=== PATIENT | female | born 1990 | race Caucasian/White ===

== ENCOUNTER 2017-02-19 15:09 | Emergency (ER) | payer OTHER ==
[2017-02-19 15:14] VITALS: BP 146/87
[2017-02-19 16:25] LABS: BILIRUBIN,URINE NEGATIVE (NEGATIVE)
--- NOTE | 2017-02-19 16:29 | ED Physician Documentation ---
History of Present Illness - Stated complaint Stated Complaint: LIGHT HEADED - Chief complaint Chief Complaint: Neuro - History obtained from History obtained from: Patient - History of Present Illness Timing: Yesterday - Additonal information Additional information: light headed since yesterday. She has had this similar feeling after taking her buspar that lasts about 1/2 hour. This lasted much longer yesterday and thought she was dehydrated and drank some extra water. Yesterday was one of the first hot days we have had this summer. Today she continues to have light headedness but she has not had spots before her eyes. She has not had vomiting or diarrhea or syncope. She has not changed medications or had any infection. She denies cough or congestion. Review of Systems Constitutional: reports: Fatigue. denies: Fever, Chills Eyes: denies: Decreased vision Ears: denies: Ear pain Nose: denies: Rhinorrhea / runny nose, Congestion Throat: reports: Other (The patient reports a 2 month history of a pain over the left jaw area that is brief and intense. She has had her wisdom teeth out and she has had a dental exam and this apparently shows this is not the problem. ). denies: Sore throat Cardiac: denies: Chest pain / pressure, Palpitations Respiratory: reports: Dyspnea. denies: Cough GI: denies: Abdominal Pain, Nausea, Vomiting, Constipation, Diarrhea : denies: Dysuria, Frequency Skin: denies: Rash Musculoskeletal: denies: Neck pain, Back pain, Extremity pain Neurologic: reports: Headache. denies: Generalized weakness, Focal weakness, Head injury, LOC PD PAST MEDICAL HISTORY - Past Medical History Past Medical History: Yes Psych: Anxiety Other Past Medical History: allergies - Past Surgical History Past Surgical History: Yes - Present Medications Home Medications: Ambulatory Orders Medication Instructions Recorded Confirmed Fexofenadine HCl [Salma Allergy] 180 mg DAILY 02/19/17 02/19/17 Montelukast [Singulair] 10 mg QPM 02/19/17 02/19/17 busPIRone [Buspar] 10 mg BID 02/19/17 02/19/17 - Allergies Allergies/Adverse Reactions: Allergies Allergy/AdvReac Type Severity Reaction Status Date / Time clindamycin Allergy Hives Verified 02/19/17 15:15 Penicillins Allergy Unknown Verified 10/16/14 17:04 tramadol Allergy Hives Verified 02/19/17 15:15 - Social History Does the pt smoke?: No Smoking Status: Never smoker Does the pt drink ETOH?: No Does the pt have substance abuse?: No PD ED PE NORMAL - Vitals Vital signs reviewed: Yes (tachy to 100 and hypertensive) - General General: Alert and oriented X 3, No acute distress, Well developed/nourished - HEENT HEENT: Atraumatic, PERRL, EOMI, Ears normal, Pharynx benign, Dentition benign, Other (dry mucous membranes ) - Neck Neck: Supple, no meningeal sign, No bony TTP, No adenopathy - Cardiac Cardiac: RRR, No murmur - Respiratory Respiratory: No respiratory distress, Clear bilaterally - Abdomen Abdomen: Soft, Non tender - Back Back: No CVA TTP, No spinal TTP - Derm Derm: Normal color, Warm and dry, No rash - Extremities Extremities: No deformity, No edema - Neuro Neuro: Alert and oriented X 3, marketing sales consultant 2-12 intact, No motor deficit, No sensory deficit, Normal speech - Psych Psych: Normal mood, Normal affect Results - Vitals Vitals: Vital Signs - 24 hr 02/19/17 15:12 Temperature 36.7 C Heart Rate 101 H Respiratory 18 Rate Blood Pressure 146/87 H O2 Saturation 97 Oxygen O2 Source Room air - Labs Labs: Laboratory Tests 02/19/17 16:15 Urine Color YELLOW Urine Clarity CLEAR Urine pH 6.0 Ur Specific [place] 1.020 Urine Protein NEGATIVE Urine Glucose (UA) NEGATIVE Urine Ketones NEGATIVE Urine Occult Blood SMALL H Urine Nitrite NEGATIVE Urine Bilirubin NEGATIVE Urine Urobilinogen 0.2 (NORMAL) Ur Leukocyte Esterase NEGATIVE Urine RBC 0-5 Urine WBC 0-3 Ur Squamous Epith Cells FEW Squamous Urine Bacteria None Seen Ur Microscopic Review INDICATED Urine Culture Comments NOT INDICATED Urine HCG, Qual NEGATIVE Procedures - IVC sono (time) 1610 Bedside IVC sono: IVC measures (cm) (0.84), IVC collapsed c insp (cm) (complete) , Dehydration PD MEDICAL DECISION MAKING - ED course Complexity details: reviewed old records, reviewed results, re-evaluated patient , considered differential, d/w patient ED course: 26 y/o female with light headedness is dehydrated on interrogation of the IVC and she is able to hydrate orally and does not feel IV is needed. We are checking her urine and providing oral hydration. Departure - Departure Disposition: 01 Home, Self Care Clinical Impression: Dehydration Instructions: ED Dehydration Follow-Up: Carolyn Caal MD [Primary Care Provider] -
[2017-02-19 16:35] LABS: HCG UR QUAL NEGATIVE; UA w/ MICROSCOPIC CHARGE YES
[2017-02-19 16:44] LABS: UR CULTURE IF IND NOT INDICATED; WBC,URINE 0-3 /HPF (0-5)
== END 2017-02-19 16:58 | disposition home or self-care (01) ==
LOC: ED 15:09
DX: E86.0 Dehydration (principal); R42 Dizziness and giddiness
CPT/HCPCS: 81001; 81003; 81025; 87086; 99283; 99284

== ENCOUNTER 2017-12-28 04:20 | Outpatient (CLI) | payer OTHER | END 2017-12-28 04:21 | disposition critical access hospital (66) | LOC: EMS 04:20 | PROVIDERS: ATTEND Surgery | DX: R07.9 Chest pain, unspecified (principal) | CPT/HCPCS: A0425; A0429 ==

== ENCOUNTER 2017-12-28 04:42 | Emergency (ER) | payer OTHER ==
--- NOTE | 2017-12-28 04:50 | ED Physician Documentation ---
PD HPI CHEST PAIN - Stated complaint Stated Complaint: CHEST PAIN - Chief complaint Chief Complaint: Cardiac - History obtained from History obtained from: Patient - History of Present Illness Timing - onset: Enter time (11:00), Today Timing - onset during: Rest Timing - duration: Hours Timing - details: Gradual onset, Still present Quality: Pressure, Pain Location: Other (band-like distribution) Improved by: Nothing Worsened by: Inspiration Associated symptoms: No: Shortness of air, Diaphoresis, Nausea, Vomiting, Feeling faint / dizzy, General Weakness, Palpitations, Cough Similar symptoms before: Has not had sx before Recently seen: Not recently seen Review of Systems Constitutional: reports: Reviewed and negative Cardiac: reports: Chest pain / pressure. denies: Palpitations, Pedal edema, Calf pain Respiratory: reports: Reviewed and negative GI: reports: Reviewed and negative Musculoskeletal: denies: Extremity swelling PD PAST MEDICAL HISTORY - Past Medical History Past Medical History: Yes Psych: Anxiety - Past Surgical History Past Surgical History: Yes - Present Medications Home Medications: Ambulatory Orders Medication Instructions Recorded Confirmed Fexofenadine HCl [Salma Allergy] 180 mg DAILY 02/19/17 02/19/17 Montelukast [Singulair] 10 mg QPM 02/19/17 02/19/17 busPIRone [Buspar] 10 mg BID 02/19/17 02/19/17 - Allergies Allergies/Adverse Reactions: Allergies Allergy/AdvReac Type Severity Reaction Status Date / Time clindamycin Allergy Hives Verified 12/28/17 04:49 Penicillins Allergy Unknown Verified 12/28/17 04:49 tramadol Allergy Hives Verified 12/28/17 04:49 - Social History Does the pt smoke?: No Smoking Status: Never smoker Does the pt drink ETOH?: No Does the pt have substance abuse?: No PD ED PE NORMAL - Vitals Vital signs reviewed: Yes - General General: Alert and oriented X 3, No acute distress, Well developed/nourished - Cardiac Cardiac: RRR, No murmur - Respiratory Respiratory: No respiratory distress, Clear bilaterally - Abdomen Abdomen: Soft, Non tender - Derm Derm: Normal color, Warm and dry - Extremities Extremities: No edema Results - Vitals Vitals: Oxygen O2 Source Room air - EKG (time done) No standard instances Rate: Rate (enter#) (97) Rhythm: NSR [place]: Normal Intervals: Normal [place] QRS: Normal Ischemia: Normal ST segments - Labs Labs: Laboratory Tests 12/28/17 12/28/17 12/28/17 05:28 05:28 05:28 WBC 9.3 RBC 4.82 Hgb 12.6 Hct 39.0 MCV 80.9 L MCH 26.2 L MCHC 32.4 RDW 13.9 Plt Count 299 MPV 7.2 L Neut # 6.0 Lymph # 2.4 [place] # 0.6 Eos # 0.3 Baso # 0.0 Absolute Nucleated RBC 0.00 Nucleated RBC % 0.0 D-Dimer 285.5 H Sodium 135 Potassium 3.5 Chloride 103 Carbon Dioxide 22 Anion Gap 10.0 BUN 10 Creatinine 0.6 Estimated GFR (MDRD) 122 Glucose 95 Calcium 8.7 - Rads (name of study) chest xray Radiology: Prelim report reviewed, See rad report PD MEDICAL DECISION MAKING - ED course Complexity details: reviewed results, re-evaluated patient, considered differential, d/w patient Departure - Departure Disposition: 01 Home, Self Care Clinical Impression: Chest pain Qualifiers: Chest pain type: unspecified Qualified Code(s): R07.9 - Chest pain, unspecified Condition: Good Instructions: ED Chest Pain Atypical Unkn Cause Follow-Up: RAVINDER Pimentel [Provider Group] Discharge Date/Time: 12/28/17 06:40
[2017-12-28 05:33] LABS: BASOPHILS % (AUTO) 0.5 %; EOSINOPHILS # (AUTO) 0.3 10^3/uL (0.0-0.7); EOSINOPHILS % (AUTO) 3.1 %; HGB - HEMOGLOBIN 12.6 g/dL (12.0-16.0); LYMPHOCYTES # (AUTO) 2.4 10^3/uL (1.5-3.5); LYMPHOCYTES % (AUTO) 25.6 %; MEAN CORPUSCULAR HEMOGLOBIN 26.2 pg (27.0-31.0); MEAN CORPUSCULAR HGB CONC 32.4 g/dL (32.0-36.0); MEAN CORPUSCULAR VOLUME 80.9 fL (81.0-99.0); MEAN PLATELET VOLUME 7.2 fL (7.9-10.8); MONOCYTES # (AUTO) 0.6 10^3/uL (0.0-1.0); MONOCYTES % (AUTO) 6.9 %; NEUTROPHILS % (AUTO) 63.9 %; PLT - PLATELET COUNT 299 10^3/uL (130-450); RED BLOOD COUNT 4.82 10^6/uL (4.20-5.40); RED CELL DISTRIBUTION WIDTH 13.9 % (12.0-15.0); WHITE BLOOD COUNT 9.3 x10^3/uL (4.8-10.8)
[2017-12-28 05:39] LABS: CALCIUM 8.7 mg/dL (8.5-10.3); CREATININE 0.6 mg/dL (0.4-1.0)
[2017-12-28 06:03] VITALS: BP 120/89
--- NOTE | 2017-12-28 06:03 | XRAY Report ---
EXAM: CHEST RADIOGRAPHY EXAM DATE: 12/28/2017 05:38 AM. CLINICAL HISTORY: Chest pain. COMPARISON: None. TECHNIQUE: 2 views. FINDINGS: Lungs/Pleura: No focal opacities evident. No pleural effusion. No pneumothorax. Normal volumes. Mediastinum: Heart and mediastinal contours are unremarkable. Other: None. IMPRESSION: Normal 2-view chest radiography. [facility] Referring Provider Line: [phone] SITE ID: [id number]
== END 2017-12-28 06:40 | disposition home or self-care (01) ==
LOC: EDUNIT# → ED 04:42
DX: R07.9 Chest pain, unspecified (principal)
CPT/HCPCS: 36415; 71046; 80048; 85025; 85379; 93005; 99283; 99284

== ENCOUNTER 2018-03-17 03:11 | Emergency (ER) | payer OTHER ==
--- NOTE | 2018-03-17 04:12 | ED Physician Documentation ---
History of Present Illness - Stated complaint Stated Complaint: R/L SHOULDER PAIN/LIGHTHEADEDNESS - Chief complaint Chief Complaint: General - History obtained from History obtained from: Patient - History of Present Illness Timing: Today Pain level now: 5 Quality: stabbing Improved by: no ameliorating factors Worsened by: no exacerbating factors - Additonal information Additional information: c/o pain bilateral shoulders and between shoulder blades, stabbing pain without exacerbating or ameliorating factors. recently had antibiotics for UTI Review of Systems Constitutional: reports: Reviewed and negative Cardiac: reports: Reviewed and negative Respiratory: reports: Reviewed and negative GI: reports: Abdominal Pain, Nausea, Vomiting : denies: Dysuria, Frequency PD PAST MEDICAL HISTORY - Past Medical History Psych: Anxiety - Past Surgical History Past Surgical History: Yes - Present Medications Home Medications: Ambulatory Orders Medication Instructions Recorded Confirmed Fexofenadine HCl [Salma Allergy] 180 mg DAILY 02/19/17 02/19/17 Montelukast [Singulair] 10 mg QPM 02/19/17 02/19/17 busPIRone [Buspar] 10 mg BID 02/19/17 02/19/17 - Allergies Allergies/Adverse Reactions: Allergies Allergy/AdvReac Type Severity Reaction Status Date / Time clindamycin Allergy Hives Verified 03/17/18 03:20 Penicillins Allergy Unknown Verified 03/17/18 03:20 tramadol Allergy Hives Verified 03/17/18 03:20 - Social History Does the pt smoke?: No Smoking Status: Never smoker Does the pt drink ETOH?: No Does the pt have substance abuse?: No - Immunizations Immunizations are current?: Yes PD ED PE NORMAL - Vitals Vital signs reviewed: Yes - General General: Alert and oriented X 3, No acute distress, Well developed/nourished - HEENT HEENT: Moist mucous membranes - Cardiac Cardiac: RRR, No murmur - Respiratory Respiratory: No respiratory distress, Clear bilaterally - Abdomen Abdomen: Soft, Non distended, Other (moderate tenderness right abdomen, greatest in RLQ) - Back Back: No CVA TTP Results - Vitals Vitals: Oxygen O2 Source Room air - Labs Labs: Laboratory Tests 03/17/18 03/17/18 03/17/18 04:39 04:40 04:40 WBC 7.4 RBC 4.64 Hgb 12.8 Hct 38.2 MCV 82.3 MCH 27.6 MCHC 33.5 RDW 14.5 Plt Count 291 MPV 7.9 Neut # (Auto) 4.6 Lymph # (Auto) 1.8 [place] # (Auto) 0.6 Eos # (Auto) 0.2 Baso # (Auto) 0.2 H Absolute Nucleated RBC 0.01 Nucleated RBC % 0.1 Sodium 137 Potassium 3.7 Chloride 103 Carbon Dioxide 26 Anion Gap 8.0 BUN 8 Creatinine 0.7 Estimated GFR (MDRD) 101 Glucose 99 Calcium 9.2 Total Bilirubin 0.7 AST 19 ALT 14 Alkaline Phosphatase 70 Total Protein 7.8 Albumin 4.6 Globulin 3.2 Albumin/Globulin Ratio 1.4 Lipase 36 HCG, Quant Urine Color YELLOW Urine Clarity CLEAR Urine pH 7.0 Ur Specific [place] <=1.005 Urine Protein NEGATIVE Urine Glucose (UA) NEGATIVE Urine Ketones NEGATIVE Urine Occult Blood NEGATIVE Urine Nitrite NEGATIVE Urine Bilirubin NEGATIVE Urine Urobilinogen 0.2 (NORMAL) Ur Leukocyte Esterase NEGATIVE Ur Microscopic Review NOT INDICATED Urine Culture Comments NOT INDICATED 03/17/18 04:40 WBC RBC Hgb Hct MCV MCH MCHC RDW Plt Count MPV Neut # (Auto) Lymph # (Auto) [place] # (Auto) Eos # (Auto) Baso # (Auto) Absolute Nucleated RBC Nucleated RBC % Sodium Potassium Chloride Carbon Dioxide Anion Gap BUN Creatinine Estimated GFR (MDRD) Glucose Calcium Total Bilirubin AST ALT Alkaline Phosphatase Total Protein Albumin Globulin Albumin/Globulin Ratio Lipase HCG, Quant < 0.60 Urine Color Urine Clarity Urine pH Ur Specific [place] Urine Protein Urine Glucose (UA) Urine Ketones Urine Occult Blood Urine Nitrite Urine Bilirubin Urine Urobilinogen Ur Leukocyte Esterase Ur Microscopic Review Urine Culture Comments - Rads (name of study) CT A/P Radiology: Prelim report reviewed, See rad report PD MEDICAL DECISION MAKING - ED course Complexity details: reviewed results, re-evaluated patient, considered differential, d/w patient - Sepsis Event Vital Signs: Oxygen O2 Source Room air Departure - Departure Disposition: 01 Home, Self Care Clinical Impression: Abdominal pain, Back pain Condition: Good Instructions: ED Abdominal Pain Unkn Cause, ED Acute Pain [facility] Follow-Up: RAVINDER Pimentel [Provider Group] Discharge Date/Time: 03/17/18 06:44
[2018-03-17] MEDS ORDERED: ACETAMINOPHEN 1,000 MG/100 ML 100 ML IV STA (04:27)
[2018-03-17 04:55] LABS: BILIRUBIN,URINE NEGATIVE (NEGATIVE); GLUCOSE, URINE (UA) NEGATIVE (NEGATIVE); KETONES,URINE (UA) NEGATIVE (NEGATIVE); LEUKOCYTE ESTERASE, URINE NEGATIVE (NEGATIVE); NITRITE,URINE NEGATIVE (NEGATIVE); OCCULT BLOOD,URINE NEGATIVE (NEGATIVE); PROTEIN,URINE NEGATIVE (NEGATIVE); UROBILINOGEN,URINE 0.2 (NORMAL) E.U./dL (NORMAL)
[2018-03-17 04:56] LABS: BASOPHILS # (AUTO) 0.2 10^3/uL (0.0-0.1); BASOPHILS % (AUTO) 3.2 %; EOSINOPHILS # (AUTO) 0.2 10^3/uL (0.0-0.7); EOSINOPHILS % (AUTO) 2.8 %; HGB - HEMOGLOBIN 12.8 g/dL (12.0-16.0); LYMPHOCYTES # (AUTO) 1.8 10^3/uL (1.5-3.5); LYMPHOCYTES % (AUTO) 23.8 %; MEAN CORPUSCULAR HEMOGLOBIN 27.6 pg (27.0-31.0); MEAN CORPUSCULAR HGB CONC 33.5 g/dL (32.0-36.0); MEAN CORPUSCULAR VOLUME 82.3 fL (81.0-99.0); MEAN PLATELET VOLUME 7.9 fL (7.9-10.8); MONOCYTES # (AUTO) 0.6 10^3/uL (0.0-1.0); NEUTROPHILS # (AUTO) 4.6 10^3/uL (1.5-6.6); NEUTROPHILS % (AUTO) 62.2 %; PLT - PLATELET COUNT 291 10^3/uL (130-450); RED BLOOD COUNT 4.64 10^6/uL (4.20-5.40); RED CELL DISTRIBUTION WIDTH 14.5 % (12.0-15.0); WHITE BLOOD COUNT 7.4 x10^3/uL (4.8-10.8)
[2018-03-17 05:08] LABS: ALBUMIN 4.6 g/dL (3.2-5.5); ALBUMIN/GLOBULIN RATIO 1.4 (1.0-2.2); BILIRUBIN,TOTAL 0.7 mg/dL (0.2-1.0); CALCIUM 9.2 mg/dL (8.5-10.3); CREATININE 0.7 mg/dL (0.4-1.0); TOTAL PROTEIN 7.8 g/dL (6.7-8.2)
[2018-03-17 05:19] VITALS: BP 101/83
[2018-03-17] MEDS ORDERED: IOPAMIDOL-300 100 ML VIAL ONE (05:31)
[2018-03-17 05:32] LABS: CLARITY,URINE CLEAR (CLEAR)
[2018-03-17] MEDS ORDERED: IOPAMIDOL-300 100 ML VIAL IVP ONE (05:51)
--- NOTE | 2018-03-17 06:00 | CT Report ---
Procedure Date: 03/17/2018 Accession Number: [id number] / [id number] Procedure: CT - Abdomen/Pelvis W/ CPT Code: FULL RESULT: EXAM: CT ABDOMEN AND PELVIS EXAM DATE: 03/17/2018 05:37 AM. CLINICAL HISTORY: Abdominal pain. COMPARISONS: None. TECHNIQUE: Routine helical CT imaging was performed through the abdomen and pelvis. IV contrast: Yes . Enteric contrast: No . Reconstructions: Coronal and sagittal. In accordance with CT protocol optimization, one or more of the following dose reduction techniques were utilized for this exam: automated exposure control, adjustment of mA and/or KV based on patient size, or use of iterative reconstructive technique. FINDINGS: Lung Bases: Unremarkable. Liver: Unremarkable. No suspicious masses. Gallbladder/Bile Ducts: Unremarkable. Spleen: Unremarkable. Pancreas: Unremarkable. Adrenal Glands: Unremarkable. Kidneys: Small nonobstructing right renal stone. No suspicious masses or hydronephrosis. Peritoneal Cavity/Bowel: No bowel obstruction or inflammatory process seen. No free air or significant free fluid. No masses or adenopathy. The appendix is normal. No excessive stool burden. Pelvic Organs: Bladder, uterus, and adnexa appear unremarkable with no definite IUD. Vasculature: No aneurysms or other significant abnormality. Bones: No significant abnormality. Other: None. IMPRESSION: 1. No acute inflammatory or obstructive process seen in the abdomen or pelvis. 2. Small nonobstructing right renal stone. [facility]
== END 2018-03-17 06:44 | disposition home or self-care (01) ==
LOC: ED 03:11
DX: R10.9 Unspecified abdominal pain (principal); M54.9 Dorsalgia, unspecified
CPT/HCPCS: 36415; 74177; 80053; 81003; 83690; 84702; 85025; 96365; 99283; 99284; J0131; Q9967; 81001; 87086

== ENCOUNTER 2018-04-21 14:37 | Emergency (ER) | payer OTHER ==
[2018-04-21] MEDS ORDERED: METOCLOPRAMIDE 10 MG/2 ML VIAL IVP STA (15:36)
[2018-04-21] MEDS ORDERED: SODIUM CHLORIDE 0.9% 1,000 ML IV ONE (15:36)
--- NOTE | 2018-04-21 15:37 | ED Physician Documentation ---
History of Present Illness - Stated complaint Stated Complaint: CONSTIPATION/NAUSEA - Chief complaint Chief Complaint: Abd Pain - Additonal information Additional information: 28-year-old female presents the emergency department with increasing generalized abdominal pain associated with nausea and decreased bowel movements. The patient is passing gas but reports significant pain generalized. The patient was seen by her primary yesterday and had a x-ray. Since, the patient's pain has progressively worsened she was told to come to the emergency department by primary care. The patient denies fevers, vomiting or chills. Symptoms are described as moderate. No improvement with over-the- counter management. No other associated symptoms. Review of Systems Constitutional: reports: Fatigue. denies: Fever, Chills Eyes: denies: Photophobia Ears: denies: Drainage/discharge Nose: denies: Congestion Throat: denies: Sore throat Cardiac: denies: Chest pain / pressure Respiratory: denies: Dyspnea GI: reports: Abdominal Pain, Nausea : denies: Dysuria Skin: denies: Rash Musculoskeletal: denies: Back pain Neurologic: denies: Generalized weakness Psychiatric: reports: Anxiety Immunocompromised: denies: Chemotherapy PD PAST MEDICAL HISTORY - Past Medical History Psych: Anxiety - Past Surgical History Past Surgical History: Yes - Present Medications Home Medications: Ambulatory Orders Medication Instructions Recorded Confirmed Fexofenadine HCl [Salma Allergy] 180 mg DAILY 02/19/17 02/19/17 Montelukast [Singulair] 10 mg QPM 02/19/17 02/19/17 busPIRone [Buspar] 10 mg BID 02/19/17 02/19/17 - Allergies Allergies/Adverse Reactions: Allergies Allergy/AdvReac Type Severity Reaction Status Date / Time clindamycin Allergy Hives Verified 04/21/18 15:02 Penicillins Allergy Unknown Verified 04/21/18 15:02 tramadol Allergy Hives Verified 04/21/18 15:02 - Social History Does the pt smoke?: No Smoking Status: Never smoker Does the pt drink ETOH?: No Does the pt have substance abuse?: No - Immunizations Immunizations are current?: Yes PD ED PE NORMAL - General General: Alert and oriented X 3, No acute distress - HEENT HEENT: Atraumatic, PERRL, EOMI, Moist mucous membranes - Neck Neck: Supple, no meningeal sign - Cardiac Cardiac: RRR, Strong equal pulses, Other (The patient is slightly tachycardic secondary to pain) - Respiratory Respiratory: No respiratory distress - Abdomen Abdomen: Soft, Non distended. No: Non tender (The patient has generalized abdominal tenderness, there is no rebound or peritoneal signs) - Derm Derm: Normal color - Extremities Extremities: No deformity - Neuro Neuro: Alert and oriented X 3, Normal speech - Psych Psych: Normal affect Results - Vitals Vitals: Vital Signs - 24 hr 04/21/18 04/21/18 14:58 17:25 Temperature 36.3 C L 36.8 C Heart Rate 109 H 86 Respiratory 18 20 Rate Blood Pressure 105/86 H 123/88 H O2 Saturation 100 99 Oxygen O2 Source Room air - Labs Labs: Laboratory Tests 04/21/18 04/21/18 04/21/18 15:45 15:55 15:55 WBC 5.2 RBC 4.84 Hgb 13.6 Hct 39.0 MCV 80.7 L MCH 28.1 MCHC 34.8 RDW 14.5 Plt Count 241 MPV 7.9 Neut # (Auto) 3.6 Lymph # (Auto) 1.1 L [place] # (Auto) 0.4 Eos # (Auto) 0.1 Baso # (Auto) 0.0 Absolute Nucleated RBC 0.01 Nucleated RBC % 0.2 Sodium 135 Potassium 3.8 Chloride 102 Carbon Dioxide 22 Anion Gap 11.0 BUN 11 Creatinine 0.7 Estimated GFR (MDRD) 101 Glucose 89 Calcium 9.3 Total Bilirubin 0.7 AST 18 ALT 13 Alkaline Phosphatase 66 Total Protein 8.1 Albumin 4.9 Globulin 3.2 Albumin/Globulin Ratio 1.5 Lipase 38 Urine Color YELLOW Urine Clarity HAZY Urine pH 6.0 Ur Specific [place] 1.025 Urine Protein TRACE Urine Glucose (UA) NEGATIVE Urine Ketones >=80 H Urine Occult Blood TRACE-INTA Urine Nitrite NEGATIVE Urine Bilirubin NEGATIVE Urine Urobilinogen 1 (NORMAL) Ur Leukocyte Esterase TRACE H Urine RBC 0-5 Urine WBC 6-10 H Ur Squamous Epith Cells MOD Squamous H Urine Bacteria Moderate H Urine Mucus Few Strands Ur Microscopic Review INDICATED Urine Culture Comments NOT INDICATED Urine HCG, Qual NEGATIVE - Rads (name of study) CT abd/pelvis Radiology: Final report received (1. No acute intra-abdominal or pelvic abnormality. 2. Nonobstructing single bilateral 3 mm lower pole calculi. ) PD MEDICAL DECISION MAKING - ED course ED course: On final evaluation the patient is resting comfortably, the patient had a large bowel movement after her CT scan and now feels much improved. The patient's workup does not reveal an acute etiology that would necessitate admission to the hospital or acute surgical consultation. The patient appears appropriate for discharge home and ongoing outpatient management. I discussed with her the findings and plan she understands and agrees. I discussed warning signs and recommended returning to the emergency department immediately for worsening or any concerns. - Sepsis Event Vital Signs: Vital Signs - 24 hr 04/21/18 04/21/18 14:58 17:25 Temperature 36.3 C L 36.8 C Heart Rate 109 H 86 Respiratory 18 20 Rate Blood Pressure 105/86 H 123/88 H O2 Saturation 100 99 Oxygen O2 Source Room air Departure - Departure Disposition: 01 Home, Self Care Clinical Impression: Nausea, Kidney stone Abdominal pain Qualifiers: Abdominal location: unspecified location Qualified Code(s): R10.9 - Unspecified abdominal pain Ovarian cyst Qualifiers: Laterality: unspecified laterality Qualified Code(s): N83.209 - Unspecified ovarian cyst, unspecified side Condition: Good Instructions: Abdominal Pain, Constipation Follow-Up: Hannah Austin MD [Primary Care Provider] - Within 1 week Comments: Please return to the emergency department for worsening symptoms or any concerns
[2018-04-21] MEDS ORDERED: IOPAMIDOL-300 100 ML VIAL ONE (15:40)
[2018-04-21 16:03] LABS: GLUCOSE, URINE (UA) NEGATIVE (NEGATIVE); KETONES,URINE (UA) >=80 mg/dL (NEGATIVE); LEUKOCYTE ESTERASE, URINE TRACE (NEGATIVE); NITRITE,URINE NEGATIVE (NEGATIVE); OCCULT BLOOD,URINE TRACE-INTA (NEGATIVE); PROTEIN,URINE TRACE mg/dL (NEGATIVE); UROBILINOGEN,URINE 1 (NORMAL) E.U./dL (NORMAL)
[2018-04-21 16:13] LABS: BASOPHILS % (AUTO) 0.5 %; EOSINOPHILS # (AUTO) 0.1 10^3/uL (0.0-0.7); EOSINOPHILS % (AUTO) 1.5 %; HGB - HEMOGLOBIN 13.6 g/dL (12.0-16.0); LYMPHOCYTES # (AUTO) 1.1 10^3/uL (1.5-3.5); LYMPHOCYTES % (AUTO) 21.4 %; MEAN CORPUSCULAR HEMOGLOBIN 28.1 pg (27.0-31.0); MEAN CORPUSCULAR HGB CONC 34.8 g/dL (32.0-36.0); MEAN CORPUSCULAR VOLUME 80.7 fL (81.0-99.0); MEAN PLATELET VOLUME 7.9 fL (7.9-10.8); MONOCYTES # (AUTO) 0.4 10^3/uL (0.0-1.0); MONOCYTES % (AUTO) 7.3 %; NEUTROPHILS # (AUTO) 3.6 10^3/uL (1.5-6.6); NEUTROPHILS % (AUTO) 69.3 %; PLT - PLATELET COUNT 241 10^3/uL (130-450); RED BLOOD COUNT 4.84 10^6/uL (4.20-5.40); RED CELL DISTRIBUTION WIDTH 14.5 % (12.0-15.0); WHITE BLOOD COUNT 5.2 x10^3/uL (4.8-10.8)
[2018-04-21 16:18] LABS: BILIRUBIN,URINE NEGATIVE (NEGATIVE); CLARITY,URINE HAZY (CLEAR); HCG UR QUAL NEGATIVE; ICTOTEST,URINE NEGATIVE
[2018-04-21 16:20] LABS: ALBUMIN 4.9 g/dL (3.2-5.5); ALBUMIN/GLOBULIN RATIO 1.5 (1.0-2.2); BILIRUBIN,TOTAL 0.7 mg/dL (0.2-1.0); CALCIUM 9.3 mg/dL (8.5-10.3); CREATININE 0.7 mg/dL (0.4-1.0); TOTAL PROTEIN 8.1 g/dL (6.7-8.2)
[2018-04-21 16:25] LABS: BACTERIA,URINE Moderate /HPF (None Seen); MUCUS,URINE Few Strands; RBC,URINE 0-5 /HPF (0-5); SQUAMOUS EPITHELIAL CELL,UR MOD Squamous (<= Few)
[2018-04-21] MEDS ORDERED: IOPAMIDOL-300 100 ML VIAL IVP ONE (16:53)
[2018-04-21 17:26] VITALS: BP 123/88
--- NOTE | 2018-04-21 17:28 | CT Report ---
Reason: increasing abdominal pain with nasuea Procedure Date: 04/21/2018 Accession Number: [id number] / [id number] Procedure: CT - Abdomen/Pelvis W/ CPT Code: FULL RESULT: EXAM: CT ABDOMEN AND PELVIS EXAM DATE: 04/21/2018 04:54 PM. CLINICAL HISTORY: Right upper quadrant pain. COMPARISONS: Chest radiograph 12/28/2017. CT of abdomen and pelvis 03/17/2018. TECHNIQUE: Routine helical CT imaging was performed through the abdomen and pelvis. IV contrast: ISOVUE 300 100 mL. Enteric contrast: No. Reconstructions: Coronal and sagittal. In accordance with CT protocol optimization, one or more of the following dose reduction techniques were utilized for this exam: automated exposure control, adjustment of mA and/or KV based on patient size, or use of iterative reconstructive technique. FINDINGS: Lung Bases: Unremarkable. Liver: Normal. No masses. Gallbladder/Bile Ducts: Unremarkable. Spleen: Normal. Pancreas: Normal. Adrenal Glands: Normal. Kidneys: No masses or hydronephrosis. Small single bilateral 3 mm nonobstructing lower pole calculi as before. Peritoneal Cavity/Bowel: Normal. No free fluid, free air or adenopathy. No masses or acute inflammatory process. The appendix is well visualized and normal. Pelvic Organs: Urinary bladder is unremarkable. Uterus is anteflexed. IUD (likely ParaGard) in situ, appears appropriately positioned. An adnexal mass. Crenulated rim-enhancing left adnexal cystic lesion, likely a corpus luteum (). Vasculature: No aneurysms or other significant abnormality. Bones: No significant abnormality. Other: None. IMPRESSION: 1. No acute intra-abdominal or pelvic abnormality. 2. Nonobstructing single bilateral 3 mm lower pole calculi. [facility]
== END 2018-04-21 17:50 | disposition home or self-care (01) ==
LOC: ED 14:37
DX: R11.0 Nausea (principal); N20.0 Calculus of kidney; N83.202 Unspecified ovarian cyst, left side
CPT/HCPCS: 36415; 74177; 80053; 81001; 81025; 83690; 85025; 96361; 96374; 99283; 99284; J2765; Q9967; 81003; 87086